=== PATIENT | female | born 1975 | race Two or more races ===

== ENCOUNTER → 2020-05-26 | Outpatient (CLI) | payer BC, OTHER ==
--- NOTE | 2020-05-27 09:37 | SLEEP ---
DATE OF STUDY: 05/26/2020 HOME SLEEP STUDY ATTENDING PHYSICIAN: Ezekiel Lee MD The patient is a 45-year-old who weighs 180 pounds with a BMI of 35.1. The patient underwent home sleep study performed at [facility]. Total recording time was 575 minutes. During the night study, the patient had 140 obstructive apneas, 1 central apnea, 17 mixed apneas and 20 hypopneas. The patient's AHI was 27.7 per hour. Nocturnal oximetry study revealed an average oxygen saturation of 95% with the lowest of 71%. The 10 minutes were spent with oxygen saturation of less than 90% and another 3 minutes with saturation less than 85%. Mean heart rate 82 beats per minute. IMPRESSION: 1. Moderate obstructive sleep apnea at an AHI of 27.7 per hour. 2. Nocturnal hypoxia secondary to obstructive sleep apnea. RECOMMENDATIONS: 1. The patient would benefit from treatment of sleep apnea with CPAP. This can be done as an in-lab titration study versus home auto-PAP titration. 2. Once the patient is optimally treated with CPAP then follow up in 4-6 weeks to assess compliance and to document clinical improvement. 3. Weight loss is advised. 4. Avoid [employer] depressants. 5. Caution regarding driving until symptoms of sleep apnea have resolved with the use of CPAP. JAD BARRIGA MD DR: FRANCA/lenny JOB#: [id number] / [id number] EZEKIEL Topete MD
== END ==
LOC: RT 08:37
PROVIDERS: ATTEND Family Medicine
DX: G47.33 Obstructive sleep apnea (adult) (pediatric) (principal); R09.02 Hypoxemia; R06.83 Snoring
CPT/HCPCS: G0399

== ENCOUNTER → 2020-06-08 | Outpatient (CLI) | payer BC ==
--- NOTE | 2020-06-09 11:17 | SLEEP ---
DATE OF STUDY: 06/08/2020 SLEEP STUDY ATTENDING PHYSICIAN: Ezekiel Lee MD The patient is a 45-year-old who weighs 180 pounds with a BMI of 36. The patient had a previous home sleep study and was found to have moderate MONICA at an AHI of 27.7 per hour. The patient had nocturnal hypoxia as well. The patient was referred back for in-lab titration study. During the night study, the patient spent 403 minutes in bed and slept for 375 minutes with a sleep efficiency of 93%. Sleep latency was 9 minutes with a REM latency of 56 minutes. Sleep architecture showed normal stage 1 and stage 2 sleep, normal slow wave and increased REM sleep, which was 34% of the total sleep time. EKG monitoring revealed normal sinus rhythm, no sustained arrhythmias observed. Average heart rate 77 beats per minute. No PLMs observed. The patient was started on CPAP at 5 cm water and titrated up to 9 cm water. At the final pressure, the patient slept for 47 minutes. The patient had supine as well as REM sleep. The patient's AHI was reduced to 5 per hour, mostly from treatment emergent central apneas. Oxygen saturation remained above 93%. IMPRESSION: 1. Sleep apnea diagnosed by previous sleep study. 2. No clinically significant periodic limb movements. RECOMMENDATIONS: 1. CPAP at 9 cm water completely eliminated the patient's sleep apnea and should be used on a nightly basis. 2. Follow up in 4-6 weeks to assess compliance with CPAP and to document clinical improvement. 3. Weight loss is advised. 4. Avoid [employer] depressants. 5. Cautioned regarding driving until symptoms of sleep apnea resolve with the use of CPAP. JAD BARRIGA MD DR: FRANCA/lenny JOB#: [id number] / [id number] EZEKIEL Topete MD
== END ==
LOC: RT 19:42
PROVIDERS: ATTEND Family Medicine
DX: G47.33 Obstructive sleep apnea (adult) (pediatric) (principal)
CPT/HCPCS: 95811

== ENCOUNTER → 2021-02-25 | Outpatient (CLI) | payer BC ==
--- NOTE | 2021-02-25 17:24 | RAD ---
US PELVIS COMPLETE History: Reason: ENLARGED UTERUS / Spl. Instructions: / History: Comparison: July 30, 2013 Technique: Grayscale and color Doppler imaging of the pelvis was performed using transabdominal and t ransvaginal technique. Findings: The uterus measures 11.2 x 7.2 x 4.3 cm. Uterus has an unremarkable appearance. The endometrial str ipe measures 4 mm. Right ovary measures 1.7 x 2.1 x 2.2 cm. Left ovary measures 3.3 x 3.9 x 3.9 cm. Left ovarian cyst measures 3.1 x 3.2 x 2.2 cm. Normal Doppler flow to the ovaries. No adnexal masses are seen. IMPRESSION: 1. Small left ovarian cyst. Electronically signed by: Janusz Montes DO (02/25/2021 5:22 PM) [id number]
== END ==
LOC: US 10:26
PROVIDERS: ATTEND Family Medicine
DX: N83.202 Unspecified ovarian cyst, left side (principal); N85.2 Hypertrophy of uterus
CPT/HCPCS: 76856